=== PATIENT | female | born 1980 | race Caucasian/White ===

== ENCOUNTER 2017-05-01 14:08 | Inpatient (IN) | payer BC ==
[~2017-05-01] VITALS: Ht 170.2 cm; Wt 86.2 kg
[~2017-05-01 14:08] MED LIST: MOTRIN400 MG PO; PERCOCET 5/31 TABLET PO; PRENATAL TABLE1 EAC3 PO
[2017-05-01 14:55] VITALS: BP 128/70
[2017-05-01 15:11] VITALS: BP 126/71
[2017-05-01 15:21] VITALS: BP 114/59
[2017-05-01] MEDS ORDERED: MOTRIN800 MG PO (15:37)
[2017-05-01 15:56] VITALS: BP 102/59
[2017-05-01 16:20] VITALS: BP 112/53
[2017-05-01 23:00] VITALS: BP 102/64
[2017-05-02 06:57] LABS: EOSINOPHIL (%) 1.5 % (0-5); EOSINOPHIL COUNT 0.1 K/uL (0-0.3); HEMATOCRIT 33.1 % (36.0-46.0); IMMATURE GRANULOCYTE (%) 0.6 % (0.0-0.7); IMMATURE GRANULOCYTE COUNT 0.1 K/uL; INSTRUMENT ABS NEUTROPHIL CT 5.4 K/uL; LYMPHOCYTE COUNT 2.3 K/uL (1.0-2.8); MCH 30.9 PG (29.0-34.0); MCHC 32.6 G/DL (30.0-36.0); MCV 94.8 FL (83-99); MEAN PLAT.VOLUME 10.6 uM^3 (9.5-12.4); MONOCYTE (%) 10.9 % (3-12); NEUTROPHIL (%) 61.3 % (45-76); NEUTROPHIL COUNT 5.4 K/uL (1.8-6.4); PLATELET COUNT 170 K/uL (156-360); RBC DIS.WIDTH-CV 13.1 % (11.8-14.6); RBC DIS.WIDTH-SD 44.6 % (39-53); RED BLOOD COUNT 3.49 M/uL (3.80-5.20); WHITE BLOOD COUNT 8.8 K/uL (4.1-10.2)
[2017-05-02 07:49] VITALS: BP 112/67
[2017-05-02 14:42] VITALS: BP 101/59
[2017-05-02 22:30] VITALS: BP 108/59
[2017-05-03 07:37] VITALS: BP 118/62
== END 2017-05-03 15:09 | disposition home or self-care (01) | DRG 775 ==
LOC: LDRP-OP 14:08 → 2WEST 14:09 → LDRP-OP 05-30 11:31
PROVIDERS: Nurse Practitioner
PROC: 10E0XZZ Delivery of Products of Conception, External Approach (ICD-10-PCS; principal; 2017-05-01)
PROC: 10907ZC Drainage of Amniotic Fluid, Therapeutic from Products of Conception, Via Natural or Artificial Opening (ICD-10-PCS; 2017-05-01)
DX: O62.3 Precipitate labor (principal); O99.824 Streptococcus B carrier state complicating childbirth; O99.02 Anemia complicating childbirth; D50.9 Iron deficiency anemia, unspecified; Z3A.40 40 weeks gestation of pregnancy; Z37.0 Single live birth
CPT/HCPCS: 85025; J2590